=== PATIENT | male | born 1965 | race Two or more races ===

== ENCOUNTER 2022-09-01 14:12 | Emergency (ER) | payer OTHER ==
[~2022-09-01] VITALS: Ht 188 cm; Wt 95.3 kg
[2022-09-01] MEDS ORDERED: GLUMETZA500 MG PO (14:19)
[2022-09-01] MEDS ORDERED: JARDIANCE10 MG PO (14:19)
[2022-09-01] MEDS ORDERED: PEPCID AC20 MG PO (20:51)
[2022-09-01] MEDS ORDERED: INTESTINEX680 M1 PO (20:51)
== END 2022-09-01 21:15 | disposition home or self-care (01) ==
LOC: ER 14:12
DX: K52.9 Noninfective gastroenteritis and colitis, unspecified (principal); E11.9 Type 2 diabetes mellitus without complications; Z79.84 Long term (current) use of oral hypoglycemic drugs